=== PATIENT | female | born 1945 | race Caucasian/White ===

== ENCOUNTER 2016-11-06 16:36 | Inpatient (IN) | payer MEDICARE ==
[~2016-11-06] VITALS: Ht 160 cm; Wt 74.1 kg
[2016-11-06 16:51] VITALS: BP 135/63; PULSE 113; RESP 22; TEMP 97.5; O2SAT 98
[2016-11-06] MEDS ORDERED: HYDROmorphone HCL PF 1 MG/ML VIAL IV PUSH ONE ×4 (17:00→18:30)
[2016-11-06] MEDS ORDERED: KETOROLAC TROMETHAMINE 30 MG/ML (IVP) VIAL IV PUSH ONE (17:00)
--- NOTE | 2016-11-06 17:07 | PD ---
HPI Chief Complaint: Pain: Acute or Chronic Time Seen by Provider: 16:41 Travel History International Travel<30 days: No Contact w/Intl Traveler<30days: No Traveled to known affect area: No History of Present Illness HPI This 71-year-old female comes by ambulance with complaint of severe back pain. 2015. She had it for about a month and then if she didn't have any pain until last March. The pain started coming back again been getting progressively worse.. She developed symptoms while she was traveling. She has had an MRI done at the [facility] pain management [facility]. She has been going for epidurals with Dr. Fernandez. She has been having quite bad pain this past week. The pain she is having is in the right sciatic area and radiates down the back side of the leg to the foot. Today she went for her third epidural injection. She was having a lot of pain before the injection. She didn't feel too badly immediately afterwards but on going home she had recurrence of severe pain which is now more severe than it has ever been. She has significant pain when she puts her weight on her leg and she is not able to walk well. She has not been incontinent of stool. She says her bladder weeks all of time but there is been no recent change. She is started having back pain in June of 2015 and it lasted about a month at that time. It started again in March. She went for an MRI [facility]. She has been on gabapentin and Cymbalta for pain. The Cymbalta as cause some tremor and has been tapered. She received 10 mg of morphine while en route to the hospital and is still in marked distress with her pain PFSH Past Medical History Diabetes: Yes ?: Not Social History Tobacco Use: No Allergies-Medications (Allergen,Severity, Reaction): Coded Allergies: No Known Allergies (Verified , 11/06/16) Reported Meds & Prescriptions Reported Meds & Active Scripts Active Reported Robaxin (Methocarbamol) 500 Mg Tab 500 Mg PO TID Multi Vitamin Daily (Multiple Vitamin) 1 Tab Tab 1 Tab PO DAILY Eql Cinnamon (Cinnamon) 500 Mg Cap 500 Mg PO BID Flax Seed Oil (Flaxseed Oil) 1,000 Mg Capsule 1,300 Mg PO BID Calcium + D3 (Calcium Carbonate-Cholecalciferol) 600-200 Mg-Unit Tab 1 Tab PO BID Biotin 5,000 Mcg Tab.rapdis 1 Tab PO DAILY Niacin (Niacinamide) 500 Mg Tablet 1 Tab PO DAILY Lovastatin 40 Mg Tab 40 Mg PO DAILY Lisinopril 2.5 Mg Tab 2.5 Mg PO DAILY Zetia (Ezetimibe) 10 Mg Tab 10 Mg PO DAILY Aspirin 81 (Aspirin) 81 Mg Tabdr 81 Mg PO DAILY Glimepiride 4 Mg Tab 4 Mg PO BIDAC Cymbalta DR (Duloxetine HCl) 20 Mg Capdr 20 Mg PO DAILY Jardiance (Empagliflozin) 10 Mg Tab 10 Mg PO DAILY Gabapentin 600 Mg Tab 900 Mg PO HS Gabapentin 600 Mg Tab 600 Mg PO BID Novolin N Inj (Insulin Human NPH) 100 Unit/Ml Inj 8 Units SQ AC DINNER Novolin N Inj (Insulin Human NPH) 100 Unit/Ml Inj 12 Units SQ AC BREAKFAST Hydrocodone-Acetaminophen 10-325 mg Tab 1 Tab PO Q6H PRN Review of Systems General / Constitutional: No: Fever, Chills Eyes: No: Diploplia, Blurred Vision HENT: No: Headaches, Vertigo Cardiovascular: No: Chest Pain or Discomfort, Palpitations Respiratory: No: Cough, Shortness of Breath Gastrointestinal: No: Vomiting, Diarrhea Genitourinary: Positive: Incontinence (chronic), No: Urgency Musculoskeletal: Positive: Pain, No: Arthralgias Skin: No Rash, No Itching Neurologic: No: Change in Mentation, Sensory Disturbance Hematologic/Lymphatic: No: Easy Bruising Physical Exam Narrative GENERAL: Well-developed female. She is in marked distress due to the pain. She is lying on her left side and resists any attempts to move. SKIN: Focused skin assessment warm/dry. HEAD: Atraumatic. Normocephalic. EYES: Pupils equal and round. No scleral icterus. No injection or drainage. ENT: No nasal bleeding or discharge. Mucous membranes pink and moist. NECK: Trachea midline. No JVD. CARDIOVASCULAR: Regular rate and rhythm. No murmur appreciated. RESPIRATORY: No accessory muscle use. Clear to auscultation. Breath sounds equal bilaterally. GASTROINTESTINAL: Abdomen soft, non-tender, nondistended. Hepatic and splenic margins not palpable. MUSCULOSKELETAL: No obvious deformities. No clubbing. No cyanosis. No edema. NEUROLOGICAL: Awake and alert. No obvious cranial nerve deficits. There is diminished sensation in the posterior lateral portion of the right leg. Complains of a lot of pain with flexion and extension of the foot and it is hard to assess strength due to the pain she is having. She is able to move it about PSYCHIATRIC: Appropriate mood and affect; insight and judgment normal. Data Data Last Documented VS Vital Signs Date Time Temp Pulse Resp B/P Pulse Ox O2 Delivery O2 Flow Rate FiO2 11/06/16 19:29 Nasal Cannula 2 11/06/16 19:28 101 16 123/71 90 11/06/16 17:48 97.9 Orders Complete Blood Count With Diff (11/06/16 16:51) Comprehensive Metabolic Panel (11/06/16 16:51) Prothrombin Time / Inr (Pt) (11/06/16 16:51) Act Partial Throm Time (Ptt) (11/06/16 16:51) Ketorolac Inj (Toradol Inj) (11/06/16 17:00) Hydromorphone Pf Inj (Dilaudid Pf Inj) (11/06/16 17:00) Mri L Spine W/O Contrast (11/06/16 16:58) Urinalysis - C+S If Indicated (11/06/16 17:14) Hydromorphone Pf Inj (Dilaudid Pf Inj) (11/06/16 17:45) Lorazepam Inj (Ativan Inj) (11/06/16 18:15) Hydromorphone Pf Inj (Dilaudid Pf Inj) (11/06/16 18:15) Hydromorphone Pf Inj (Dilaudid Pf Inj) (11/06/16 18:30) Admit Order (Ed Use Only) (11/06/16 20:04) Labs Laboratory Tests Test 11/06/16 17:06 White Blood Count 8.9 TH/MM3 Red Blood Count 5.03 MIL/MM3 Hemoglobin 13.8 GM/DL Hematocrit 43.3 % Mean Corpuscular Volume 86.0 FL Mean Corpuscular Hemoglobin 27.4 PG Mean Corpuscular Hemoglobin 31.8 % Concent Red Cell Distribution Width 12.4 % Platelet Count 313 TH/MM3 Mean Platelet Volume 7.9 FL Neutrophils (%) (Auto) 87.0 % Lymphocytes (%) (Auto) 9.3 % Monocytes (%) (Auto) 1.6 % Eosinophils (%) (Auto) 0.0 % Basophils (%) (Auto) 2.1 % Neutrophils # (Auto) 7.8 TH/MM3 Lymphocytes # (Auto) 0.8 TH/MM3 Monocytes # (Auto) 0.1 TH/MM3 Eosinophils # (Auto) 0.0 TH/MM3 Basophils # (Auto) 0.2 TH/MM3 CBC Comment DIFF FINAL Differential Comment Prothrombin Time 10.1 SEC Prothromb Time International 0.9 RATIO Ratio Activated Partial 20.5 SEC Thromboplast Time Sodium Level 141 MEQ/L Potassium Level 4.7 MEQ/L Chloride Level 108 MEQ/L Carbon Dioxide Level 21.7 MEQ/L Anion Gap 11 MEQ/L Blood Urea Nitrogen 20 MG/DL Creatinine 0.77 MG/DL Estimat Glomerular Filtration 74 ML/MIN Rate Random Glucose 216 MG/DL Calcium Level 9.3 MG/DL Total Bilirubin 0.4 MG/DL Aspartate Amino Transf 29 U/L (AST/SGOT) Alanine Aminotransferase 39 U/L (ALT/SGPT) Alkaline Phosphatase 48 U/L Total Protein 7.4 GM/DL Albumin 3.8 GM/DL MDM Medical Decision Making Medical Screen Exam Complete: Yes Emergency Medical Condition: Yes Medical Record Reviewed: Yes Differential Diagnosis Differential includes HNP, spinal hematoma Narrative Course It has been very difficult to control the patient's pain. She was given 10 mg of intravenous morphine by paramedics. I have given an additional 2 mg of Dilaudid as well as Toradol. The Ativan was also given to facilitate the MRI. MRI shows degenerative changes with disc protrusion. There is diffuse disc bulge at L5-S1 with right central protrusion demonstrating mass effect on the right S1 and S2 nerve roots. The protrusion measures 13 x 9 mm in transverse and AP dimension. Case discussed with Dr. Hutson who recommends pain management. Patient will be given a short course of steroids Diagnosis Primary Impression: Herniated lumbar intervertebral disc Additional Impression: Intractable pain Sidney Haro MD Nov 06, 2016 17:07
[2016-11-06 17:20] LABS: AUTOMATED NEUTROPHIL # 7.8 TH/MM3 (1.8-7.7); BASOPHIL # 0.2 TH/MM3 (0-0.2); BASOPHIL % 2.1 % (0.0-2.0); HEMATOCRIT 43.3 % (35.0-46.0); LYMPH % 9.3 % (9.0-44.0); LYMPHOCYTE # 0.8 TH/MM3 (1.0-4.8); MEAN CORPUSCULAR HEMOGLOBIN 27.4 PG (27.0-34.0); MEAN CORPUSCULAR HGB CONC 31.8 % (32.0-36.0); MONO % 1.6 % (0.0-8.0); PLATELET COUNT 313 TH/MM3 (150-450); RED BLOOD COUNT 5.03 MIL/MM3 (4.00-5.30); RED CELL DISTRIBUTION WIDTH 12.4 % (11.6-17.2); WHITE BLOOD COUNT 8.9 TH/MM3 (4.0-11.0)
[2016-11-06 17:21] LABS: HEMO FLAGS DIFF FINAL
[2016-11-06 17:29] LABS: CHLORIDE 108 MEQ/L (98-107); POTASSIUM 4.7 MEQ/L (3.5-5.1); SODIUM (NA) 141 MEQ/L (136-145)
[2016-11-06 17:33] LABS: ANION GAP 11 MEQ/L (5-15); BICARBONATE 21.7 MEQ/L (21.0-32.0); BLOOD UREA NITROGEN 20 MG/DL (7-18)
[2016-11-06 17:36] LABS: ALT (GPT) 39 U/L (10-53); AST (GOT) 29 U/L (15-37); GLOMERULAR FILTRATION RATE 74 ML/MIN (>89)
[2016-11-06] MEDS ORDERED: GABA600T PO ×2 (17:36)
[2016-11-06] MEDS ORDERED: ROBA500T PO (17:36)
[2016-11-06] MEDS ORDERED: ZETI10TA5 PO (17:36)
[2016-11-06] MEDS ORDERED: BIOT50006 PO (17:36)
[2016-11-06] MEDS ORDERED: EMPA1TAB PO (17:36)
[2016-11-06] MEDS ORDERED: LOVA40TA PO (17:36)
[2016-11-06] MEDS ORDERED: DULO20 PO (17:36)
[2016-11-06] MEDS ORDERED: GLIM4TAB PO (17:36)
[2016-11-06] MEDS ORDERED: ASPI-110 PO (17:36)
[2016-11-06] MEDS ORDERED: TH F1000 PO (17:36)
[2016-11-06] MEDS ORDERED: NOVONP2 SQ ×2 (17:36)
[2016-11-06] MEDS ORDERED: CALC600T10 PO (17:36)
[2016-11-06] MEDS ORDERED: CINN500C13 PO (17:36)
[2016-11-06] MEDS ORDERED: HYDR-3583 PO (17:36)
[2016-11-06] MEDS ORDERED: LISI2.5T3 PO (17:36)
[2016-11-06] MEDS ORDERED: MULT1TAB46 PO (17:36)
[2016-11-06] MEDS ORDERED: NIAC500T67 PO (17:36)
[2016-11-06 17:38] LABS: TOTAL BILIRUBIN ADULT 0.4 MG/DL (0.2-1.0)
[2016-11-06 17:39] LABS: ALKALINE PHOSPHATASE 48 U/L (45-117)
[2016-11-06 17:40] LABS: APTT (PATIENT) 20.5 SEC (24.3-30.1); INTERNATIONAL NORMALIZED RATIO 0.9 RATIO; PROTHROMBIN TIME - PATIENT 10.1 SEC (9.8-11.6)
[2016-11-06 17:48] VITALS: BP 139/67; PULSE 94; RESP 20; TEMP 97.9; O2SAT 97
[2016-11-06] MEDS ORDERED: LORazepam 2 MG/ML VIAL IV PUSH ONE (18:15)
--- NOTE | 2016-11-06 19:24 | RADRPT ---
EXAM DATE/TIME: 11/06/2016 18:59 [facility] COMPARISON: No previous studies available for comparison. INDICATIONS : Pain. Post epidural. MEDICAL HISTORY : Diabetes mellitus type 2. SURGICAL HISTORY : None. ENCOUNTER: Initial ACUITY: 1 day PAIN SCORE: 6/10 LOCATION: Lower back. TECHNIQUE: Multiplanar multisequence MRI of the lumbar spine was performed without contrast. FINDINGS: The most caudal appearing lumbar vertebra is numbered as L5. Mild diffuse disc desiccation and disc s pace narrowing. Multilevel osteophyte formation. No compression deformity or bone marrow edema. T12-L1: The thecal sac has a normal diameter. No evidence of disc bulge or protrusion. The neural foramina are patent bilaterally. L1-L2: The thecal sac has a normal diameter. No evidence of disc bulge or protrusion. The neural foramina are patent bilaterally. L2-L3: Minimal disc bulge and facet hypertrophy with abutment of the right L2 exiting nerve. No canal or for aminal narrowing L3-L4: Minimal diffuse disc bulge abuts the right L3 exiting nerve but does not displace it. Mild facet and ligamentum flavum hypertrophy. No canal or foraminal narrowing. L4-L5: Mild diffuse disc bulge and mild facet and ligamentum flavum hypertrophy but no canal or foraminal na rrowing. L5-S1: There is a diffuse disc bulge with a superimposed right central protrusion demonstrating mass effect on the right S1 and S2 nerve roots displaced posteriorly. The protrusion measures 13 x 9 mm in transv erse and AP dimension. CONCLUSION: Degenerative changes are noted with a disc protrusion at L5-S1 as described above. Brandon Maurice MD on November 06, 2016 at 19:19 Board Certified Radiologist. This report was verified electronically.
[2016-11-06 19:28] VITALS: BP 123/71; PULSE 101; RESP 16; O2SAT 90
[2016-11-06 20:45] VITALS: O2SAT 99
[2016-11-06] MEDS ORDERED: ONDANSETRON HCL 4 MG/2 ML VIAL IVP PRN (21:00)
[2016-11-06] MEDS ORDERED: MAGNESIUM HYDROXIDE SUSP 30 ML CUP PO PRN (21:00)
[2016-11-06] MEDS ORDERED: SENNOSIDES 8.6 MG TAB PO PRN (21:00)
[2016-11-06] MEDS ORDERED: NALOXONE HCL 0.4 MG/ML AMP IV PRN (21:00)
[2016-11-06] MEDS ORDERED: BISACODYL 10 MG SUPP RECTAL PRN (21:00)
[2016-11-06] MEDS: GABAPENTIN 300 MG CAP PO SCH ×2 (21:00→23:19)
[2016-11-06] MEDS ORDERED: LACTULOSE SYRUP 20 GM/30 ML CUP PO PRN (21:00)
[2016-11-06 21:30] VITALS: BP 128/70; PULSE 101; RESP 18; TEMP 96.3; O2SAT 96
[2016-11-06] MEDS: SODIUM CHLORIDE 0.9% FLUSH 10 ML FLUSH IV FLUSH SCH (23:20)
[2016-11-06] MEDS: DOCUSATE SODIUM 50 MG/SENNA 8.6 MG TAB PO SCH (23:20)
[2016-11-06] MEDS: HYDROmorphone HCL PF 1 MG/ML VIAL IV PRN (23:22)
[2016-11-06] MEDS: INSULIN ASPART SUPPLEMENTAL SCALE SQ SCH (23:27)
[2016-11-06] MEDS ORDERED: TEMAZEPAM 15 MG CAP PO PRN (23:45)
--- NOTE | 2016-11-06 23:54 | HHI.HP ---
HPI Service [facility] Hospitalists Primary Care Physician Yonis Poon MD, PhD Admission Diagnosis DISC PROTRUSION, RADICULOPATHY, INTRACTABLE PAIN Chief Complaint: intractable lumbar back pain all day Travel History International Travel<30 Days: No Contact w/Intl Traveler <30 Da: No Traveled to Known Affected Are: No History of Present Illness This 71-year-old female comes by ambulance with complaint of severe back pain. 2015. She had it for about a month and then if she didn't have any pain until last March. The pain started coming back again been getting progressively worse.. She developed symptoms while she was traveling. She has had an MRI done at the [facility] pain management [facility]. She has been going for epidurals with Dr. Fernandez. She has been having quite bad pain this past week. The pain she is having is in the right sciatic area and radiates down the back side of the leg to the foot. Today she went for her third epidural injection. She was having a lot of pain before the injection. She didn't feel too badly immediately afterwards but on going home she had recurrence of severe pain which is now more severe than it has ever been. She has significant pain when she puts her weight on her leg and she is not able to walk well. She has not been incontinent of stool. She says her bladder weeks all of time but there is been no recent change. She is started having back pain in June of 2015 and it lasted about a month at that time. It started again in March. She has been on gabapentin and Cymbalta for pain. The Cymbalta as cause some tremor and has been tapered. She received 10 mg of morphine while en route to the hospital and is still in marked distress with her pain,Will admit for further evaluation. Review of Systems Musculoskeletal: COMPLAINS OF: Joint pain, Back pain Past Family Social History Past Medical History diabetes ,hypertension ,hyperlipidemia Past Surgical History appendix Reported Medications Robaxin (Methocarbamol) 500 Mg Tab 500 Mg PO TID Multi Vitamin Daily (Multiple Vitamin) 1 Tab Tab 1 Tab PO DAILY Eql Cinnamon (Cinnamon) 500 Mg Cap 500 Mg PO BID Flax Seed Oil (Flaxseed Oil) 1,000 Mg Capsule 1,300 Mg PO BID Calcium + D3 (Calcium Carbonate-Cholecalciferol) 600-200 Mg-Unit Tab 1 Tab PO BID Biotin 5,000 Mcg Tab.rapdis 1 Tab PO DAILY Niacin (Niacinamide) 500 Mg Tablet 1 Tab PO DAILY Lovastatin 40 Mg Tab 40 Mg PO DAILY Lisinopril 2.5 Mg Tab 2.5 Mg PO DAILY Zetia (Ezetimibe) 10 Mg Tab 10 Mg PO DAILY Aspirin 81 (Aspirin) 81 Mg Tabdr 81 Mg PO DAILY Glimepiride 4 Mg Tab 4 Mg PO BIDAC Cymbalta DR (Duloxetine HCl) 20 Mg Capdr 20 Mg PO DAILY Jardiance (Empagliflozin) 10 Mg Tab 10 Mg PO DAILY Gabapentin 600 Mg Tab 900 Mg PO HS Gabapentin 600 Mg Tab 600 Mg PO BID Novolin N Inj (Insulin Human NPH) 100 Unit/Ml Inj 8 Units SQ AC DINNER Novolin N Inj (Insulin Human NPH) 100 Unit/Ml Inj 12 Units SQ AC BREAKFAST Hydrocodone-Acetaminophen 10-325 mg Tab 1 Tab PO Q6H PRN Allergies: Coded Allergies: No Known Allergies (Verified , 11/06/16) Social History NS,ND Physical Exam Vital Signs Vital Signs Date Time Temp Pulse Resp B/P Pulse Ox O2 Delivery O2 Flow Rate FiO2 11/06/16 21:30 96.3 101 18 128/70 96 11/06/16 20:45 99 Nasal Cannula 2 11/06/16 19:29 Nasal Cannula 2 11/06/16 19:28 101 16 123/71 90 Room Air 11/06/16 17:48 97.9 94 20 139/67 97 Room Air 11/06/16 16:51 97.5 113 22 135/63 98 Physical Exam GENERAL: This is a well-nourished, well-developed patient, in no apparent distress. SKIN: No rashes, ecchymoses or lesions. Cool and dry. HEAD: Atraumatic. Normocephalic. No temporal or scalp tenderness. EYES: Pupils equal round and reactive. Extraocular motions intact. No scleral icterus. No injection or drainage. ENT: Nose without bleeding, purulent drainage or septal hematoma. Throat without erythema, tonsillar hypertrophy or exudate. Uvula midline. Airway patent. NECK: Trachea midline. No JVD or lymphadenopathy. Supple, nontender, no meningeal signs. CARDIOVASCULAR: Regular rate and rhythm without murmurs, gallops, or rubs. RESPIRATORY: Clear to auscultation. Breath sounds equal bilaterally. No wheezes , rales, or rhonchi. GASTROINTESTINAL: Abdomen soft, non-tender, nondistended. No hepato-splenomegaly , or palpable masses. No guarding. MUSCULOSKELETAL: Extremities without clubbing, cyanosis, or edema. No joint tenderness, effusion, or edema noted. No calf tenderness. Negative Homans sign bilaterally. NEUROLOGICAL: Awake and alert. Cranial nerves II through XII intact. Motor and sensory grossly within normal limits. Five out of 5 muscle strength in all muscle groups. Normal speech. Patient unable to lie flat on side due to pain Laboratory Laboratory Tests Test 11/06/16 17:06 White Blood Count 8.9 Red Blood Count 5.03 Hemoglobin 13.8 Hematocrit 43.3 Mean Corpuscular Volume 86.0 Mean Corpuscular Hemoglobin 27.4 Mean Corpuscular Hemoglobin 31.8 Concent Red Cell Distribution Width 12.4 Platelet Count 313 Mean Platelet Volume 7.9 Neutrophils (%) (Auto) 87.0 Lymphocytes (%) (Auto) 9.3 Monocytes (%) (Auto) 1.6 Eosinophils (%) (Auto) 0.0 Basophils (%) (Auto) 2.1 Neutrophils # (Auto) 7.8 Lymphocytes # (Auto) 0.8 Monocytes # (Auto) 0.1 Eosinophils # (Auto) 0.0 Basophils # (Auto) 0.2 CBC Comment DIFF FINAL Differential Comment Prothrombin Time 10.1 Prothromb Time International 0.9 Ratio Activated Partial 20.5 Thromboplast Time Sodium Level 141 Potassium Level 4.7 Chloride Level 108 Carbon Dioxide Level 21.7 Anion Gap 11 Blood Urea Nitrogen 20 Creatinine 0.77 Estimat Glomerular Filtration 74 Rate Random Glucose 216 Calcium Level 9.3 Total Bilirubin 0.4 Aspartate Amino Transf 29 (AST/SGOT) Alanine Aminotransferase 39 (ALT/SGPT) Alkaline Phosphatase 48 Total Protein 7.4 Albumin 3.8 Result Diagram: 11/06/16 1706 11/06/16 1706 Imaging Last 24 hours Impressions Lumbar Spine MRI 11/06/16 1658 Signed Impressions: Service Date/Time: October 18:59 - CONCLUSION: Degenerative changes are noted with a disc protrusion at L5-S1 as described above. Brandon Maurice MD Course in er received multiple iv pain meds Assessment and Plan Problem List: (1) Herniated lumbar intervertebral disc Status: Acute Plan: patient with herniated disc er did discuss with neurosurgery and felt nothing surgical will ask interventional radiology for evaluation (2) Intractable pain Status: Acute Plan: continue current pain meds add sleeping pill to try and help patient get some rest Assessment and Plan further plan as case progresses Code Status full Discussed Condition With patient Carrillo Iraheta MD Nov 06, 2016 23:53
[2016-11-07] VITALS: BP_SYST 135; BP_DIAS 165; BP_DIAS 65; PULSE 100; RESP 18; TEMP 95.9; O2SAT 96
[2016-11-07] MEDS: SODIUM CHLORIDE 0.9% FLUSH 10 ML FLUSH IV FLUSH PRN ×2 (02:13→22:22)
[2016-11-07] MEDS: HYDROmorphone HCL PF 1 MG/ML VIAL IV PRN ×5 (02:13→22:22)
[2016-11-07] MEDS: GLIMEPIRIDE 4 MG TAB PO SCH ×2 (06:25→16:37)
[2016-11-07] MEDS: INSULIN HUMAN NPH 1,000 UNITS/10 ML VIAL SQ SCH ×2 (06:27→16:41)
[2016-11-07] MEDS: INSULIN ASPART SUPPLEMENTAL SCALE SQ SCH ×4 (06:28→20:52)
[2016-11-07 08:00] VITALS: BP 166/80; PULSE 114; RESP 18; TEMP 98.5; O2SAT 95
[2016-11-07] MEDS: LISINOPRIL 5 MG TAB PO SCH (08:25)
[2016-11-07] MEDS: METHOCARBAMOL 500 MG TAB PO SCH ×3 (08:26→17:18)
[2016-11-07] MEDS: DOCUSATE SODIUM 50 MG/SENNA 8.6 MG TAB PO SCH ×2 (08:26→20:45)
[2016-11-07] MEDS: MULTIVITAMIN TAB PO SCH (08:26)
[2016-11-07] MEDS: GABAPENTIN 300 MG CAP PO SCH ×3 (08:27→20:44)
[2016-11-07] MEDS: EZETIMIBE 10 MG TAB PO SCH (08:27)
[2016-11-07] MEDS: SODIUM CHLORIDE 0.9% FLUSH 10 ML FLUSH IV FLUSH SCH ×2 (08:31→20:44)
[2016-11-07] MEDS ORDERED: ASPIRIN EC 81 MG TABEC PO SCH (09:00)
[2016-11-07] MEDS ORDERED: PRAVASTATIN SOD 40 MG TAB PO SCH (09:00)
[2016-11-07] MEDS ORDERED: JARDIANCE 10 MG PO SCH (09:00)
[2016-11-07] MEDS: DULoxetine HCl DR 20 MG CAP PO SCH (09:38)
[2016-11-07 10:14] LABS: BLOOD, URINE TRACE (NEG); NITRITE,URINE NEG (NEG); PH, URINE 5.5 (5.0-8.5)
[2016-11-07 10:30] LABS: GLUCOSE,URINE 1000 OR GREATER mg/dL (NEG); KETONE, URINE 80 OR GREATER mg/dL (NEG)
[2016-11-07 10:40] LABS: METHOD OF COLLECTION VOIDED; URINE COLOR STRAW (YELLW/STRAW)
[2016-11-07 10:41] LABS: COMMENT (UR) CULT NOT INDICATED; CULTURE IF INDICATED CULT NOT INDICATED; HYALINE CAST, URINE 0-3 /lpf (RARE); SQUAMOUS EPITHELIAL CELL URINE 0-2 /hpf (0-5); WBC, URINE 0-2 /hpf (0-5)
--- NOTE | 2016-11-07 11:53 | HHI.PR ---
Subjective Remarks Patient remains in severe back pain and i discussed with interventional radiology and as patient had epidural yesterday there is nothing they can do at this time ,medication has not been helping ,patient crying in pain will get neurosurgery to see for any advice try 1mg dilaudid from .5 and try solumedrol times one Objective Vitals GENERAL: SKIN: Warm and dry. HEAD: Atraumatic. Normocephalic. EYES: Pupils equal and round. No scleral icterus. No injection or drainage. ENT: No nasal bleeding or discharge. Mucous membranes pink and moist. NECK: Trachea midline. No JVD. CARDIOVASCULAR: Regular rate and rhythm. RESPIRATORY: No accessory muscle use. Clear to auscultation. Breath sounds equal bilaterally. GASTROINTESTINAL: Abdomen soft, non-tender, nondistended. Hepatic and splenic margins not palpable. MUSCULOSKELETAL: Extremities without clubbing, cyanosis, or edema. No obvious deformities. NEUROLOGICAL: Awake and alert. No obvious cranial nerve deficits. Motor grossly within normal limits. Five out of 5 muscle strength in the arms and legs. Normal speech. PSYCHIATRIC: Appropriate mood and affect; insight and judgment normal. EXT-severe back pain unable to move without pain Vital Signs Date Time Temp Pulse Resp B/P Pulse Ox O2 Delivery O2 Flow Rate FiO2 11/07/16 08:00 98.5 114 18 166/80 95 11/07/16 00:00 95.9 100 18 135/65 96 11/07/16 00:00 95.9 100 18 135/165 96 11/06/16 21:30 96.3 101 18 128/70 96 11/06/16 20:45 99 Nasal Cannula 2 11/06/16 19:29 Nasal Cannula 2 11/06/16 19:28 101 16 123/71 90 Room Air 11/06/16 17:48 97.9 94 20 139/67 97 Room Air 11/06/16 16:51 97.5 113 22 135/63 98 11/06/16 11/06/16 11/07/16 15:00 23:00 07:00 Output Total 1 ml Balance -1 ml Output Urine Total 1 ml Stool Total 0 ml # Voids 0 # Bowel Movements 0 Result Diagram: 11/06/16 1706 11/06/16 1706 Imaging Last 24 hours Impressions Lumbar Spine MRI 11/06/16 1658 Signed Impressions: Service Date/Time: October 18:59 - CONCLUSION: Degenerative changes are noted with a disc protrusion at L5-S1 as described above. Brandon Mauriec MD A/P Problem List: (1) Herniated lumbar intervertebral disc Status: Acute Plan: patient with herniated disc er did discuss with neurosurgery and felt nothing surgical will ask for advice trying all pain modalities and asked for PT ,interventional radiology unable to do anything as just had epidural yesterday (2) Intractable pain Status: Acute Plan: continue current pain meds add sleeping pill to try and help patient get some rest Assessment and Plan as above Carrillo Iraheta MD Nov 07, 2016 11:53
[2016-11-07 12:00] VITALS: BP 123/54; PULSE 100; RESP 18; TEMP 97.9; O2SAT 100
[2016-11-07] MEDS ORDERED: methylPREDNISolone SOD SUCC 125 MG/2 ML VIAL IV PUSH ONE (12:00)
[2016-11-07] MEDS ORDERED: HYDROmorphone HCL PF 1 MG/ML VIAL IV PUSH ONE (12:00)
[2016-11-07] MEDS: JARDIANCE 10 MG PO SCH (12:20)
[2016-11-07 16:00] VITALS: BP 126/82; PULSE 79; RESP 18; TEMP 97.9; O2SAT 95
[2016-11-07] MEDS ORDERED: LORazepam 0.5 MG TAB PO PRN (17:30)
[2016-11-07 20:00] VITALS: BP 134/79; PULSE 90; RESP 20; TEMP 97.6; O2SAT 95
[2016-11-07] MEDS: ACETAMINOPHEN/HYDROcodone 325 MG/10 MG TAB PO PRN (20:44)
--- NOTE | 2016-11-07 22:47 | PD.CONS ---
History of Present Illness Service Neurosurgery Consult Requested By Dr. Iraheta Reason for Consult Lumbar disc herniation with radiculopathy Primary Care Physician Yonis Poon MD, PhD Diagnoses: History of Present Illness Ms. Rouse is a 71-year-old lady who states that in June 2015, she was on a trip in the [facility], and developed acute onset of right low back pain with radiation to the right lower extremity. She was seen in an emergency room and given pain injections and release. The pain persisted and in July 2015 she received a Dilaudid injection in an emergency room, and the pain significantly diminished. She did relatively well until March 2016 when the right lower extremity pain gradually returned. In April 2016 she underwent an MRI which revealed an L5-S1 disc displacement. She was referred for interventional pain management evaluation and has undergone 3 epidural steroid injections since April 2016. She indicates that the injections have moderated the pain, but have not totally relieved the pain. She states that her pain level has continued to be mostly a 6/10 severity with occasional more severe flareups over the past few months. She has been placed on gabapentin and Cymbalta through the interventional pain clinic. She indicates that the Cymbalta has caused some shaking, and is being weaned off. She is not taking other pain medications on a long-term basis. This past Thursday, she developed a significant increase in right lower extremity pain symptoms, which has been mostly 10/10 over the past few days. She has been receiving intravenous pain medications since admission to the hospital yesterday, which have improved the pain to a moderate degree, but she still remains more painful than her usual baseline. She complains of intermittent numbness in the posterior right lower extremity including the lateral right foot. No complaints of bowel or bladder dysfunction. She has no pain weakness or numbness in the lower extremities. No definite pain weakness or numbness in the upper extremities except for some loss of sensation over her fingertips which she attributes to fingersticks for diabetes. Review of Systems Constitutional: DENIES: Fever Eyes: DENIES: Blurred vision Respiratory: DENIES: Cough, Shortness of breath Cardiovascular: DENIES: Chest pain, Palpitations Gastrointestinal: DENIES: Nausea, Vomiting Musculoskeletal: COMPLAINS OF: Back pain, DENIES: Neck pain Hematologic/lymphatic: DENIES: Bruising Neurologic: COMPLAINS OF: Abnormal gait, DENIES: Poor Balance Psychiatric: DENIES: Depression Past Family Social History Allergies: Coded Allergies: No Known Allergies (Verified , 11/06/16) Past Medical History Diabetes Hypertension Dyslipidemia Reported Medications Reported Meds & Active Scripts Active Reported Robaxin (Methocarbamol) 500 Mg Tab 500 Mg PO TID Multi Vitamin Daily (Multiple Vitamin) 1 Tab Tab 1 Tab PO DAILY Eql Cinnamon (Cinnamon) 500 Mg Cap 500 Mg PO BID Flax Seed Oil (Flaxseed Oil) 1,000 Mg Capsule 1,300 Mg PO BID Calcium + D3 (Calcium Carbonate-Cholecalciferol) 600-200 Mg-Unit Tab 1 Tab PO BID Biotin 5,000 Mcg Tab.rapdis 1 Tab PO DAILY Niacin (Niacinamide) 500 Mg Tablet 1 Tab PO DAILY Lovastatin 40 Mg Tab 40 Mg PO DAILY Lisinopril 2.5 Mg Tab 2.5 Mg PO DAILY Zetia (Ezetimibe) 10 Mg Tab 10 Mg PO DAILY Aspirin 81 (Aspirin) 81 Mg Tabdr 81 Mg PO DAILY Glimepiride 4 Mg Tab 4 Mg PO BIDAC Cymbalta DR (Duloxetine HCl) 20 Mg Capdr 20 Mg PO DAILY Jardiance (Empagliflozin) 10 Mg Tab 10 Mg PO DAILY Gabapentin 600 Mg Tab 900 Mg PO HS Gabapentin 600 Mg Tab 600 Mg PO BID Novolin N Inj (Insulin Human NPH) 100 Unit/Ml Inj 8 Units SQ AC DINNER Novolin N Inj (Insulin Human NPH) 100 Unit/Ml Inj 12 Units SQ AC BREAKFAST Hydrocodone-Acetaminophen 10-325 mg Tab 1 Tab PO Q6H PRN Family History Gives a history of breast cancer and cardiac disease in her mother. Social History Does not smoke cigarettes or drink alcohol. Physical Exam Vital Signs Vital Signs Date Time Temp Pulse Resp B/P Pulse Ox O2 Delivery O2 Flow Rate FiO2 11/07/16 20:00 97.6 90 20 134/79 95 11/07/16 16:00 97.9 79 18 126/82 95 11/07/16 12:00 97.9 100 18 123/54 100 11/07/16 08:00 98.5 114 18 166/80 95 11/07/16 00:00 95.9 100 18 135/65 96 11/07/16 00:00 95.9 100 18 135/165 96 Physical Exam GENERAL: This is a well-nourished, well-developed patient, appears quite painful during the examination SKIN: No rashes, ecchymoses or lesions. Cool and dry. HEAD: Normocephalic. EYES: Sclerae are clear and nonicteric ENT: No facial edema or ecchymosis NECK:Supple, nontender, no meningeal signs. CARDIOVASCULAR: Regular rate and rhythm without murmurs, gallops, or rubs. RESPIRATORY: Clear to auscultation. Breath sounds equal bilaterally. No wheezes , rales, or rhonchi. GASTROINTESTINAL: Abdomen soft, non-tender, nondistended. No hepato-splenomegaly , or palpable masses. No guarding. MUSCULOSKELETAL: Extremities without clubbing, cyanosis, or edema. No joint tenderness, effusion, or edema noted. No calf tenderness. She complains of mild groin pain with internal/external rotation of the right and left lower extremity. No tenderness over the right or left lateral hip. Posterior tibial and dorsalis pedis pulses 2+ bilateral NEUROLOGICAL: Awake and alert. Speech clear and appropriate Reasonable judgment and insight Appears a little anxious. No obvious depression Follow simple commands well Extraocular movements intact Patient motor movements symmetric Sensation intact to light touch in the upper and lower extremities except mild decrease fingertips both hands and mild decrease posterior right calf and lateral foot to light touch. Strength is within normal limits in all major flexion and extension groups throughout the upper and lower extremities as well as hand intrinsic musculature and inversion/eversion of the right and left foot. She does have some guarding with distal right lower extremity motor testing with complaint of leg pain with this movement. Eitan's response absent bilateral No ankle clonus Laboratory Laboratory Tests Test 11/07/16 10:00 Urine Collection Type VOIDED Urine Color STRAW Urine Turbidity CLEAR Urine pH 5.5 Urine Specific [place] 1.035 Urine Protein NEG Urine Glucose (UA) 1000 OR GREATER Urine Ketones 80 OR GREATER Urine Occult Blood TRACE Urine Nitrite NEG Urine Bilirubin NEG Urine Leukocyte Esterase NEG Urine WBC 0-2 Urine Squamous Epithelial 0-2 Cells Urine Hyaline Casts 0-3 Microscopic Urinalysis Comment CULT NOT INDICATED Result Diagram: 11/06/16 1706 11/06/16 1706 Imaging 11/06/2016 MRI lumbar spine images reviewed with the patient and her daughter. This study reveals a at least moderate central to right L5-S1 herniated nucleus pulposis which appears to be contained by the annulus and ligament. This significantly displaces the right S1 nerve root. The study is compared to images from previous MRI from April 2016 [facility] which revealed a much more mild primarily central L5-S1 disc displacement without significant nerve root impingement. Lumbar Spine MRI 11/06/16 7448 Signed Impressions: Service Date/Time: October 18:59 - CONCLUSION: Degenerative changes are noted with a disc protrusion at L5-S1 as described above. Brandon Maurice MD Assessment and Plan Assessment and Plan Impression: 1. Right L5-S1 herniated nucleus pulposus. This is likely an acute exacerbation of a previous milder central L5-S1 disc displacement as seen on previous MRI from April 2016. 2. Chronic right S1 radiculopathy with recent acute exacerbation. Persistent severe pain despite recent epidural steroid injection this past week and intravenous pain medications. 3. Diabetes 4. Dyslipidemia 5. Hypertension Recommendations: Findings were discussed at length with the patient and her daughter. The MRI images were reviewed with him. Options of further conservative treatment, further interventional pain management, and surgical intervention have all been fully discussed along with pros and cons and prognosis of each. The patient states that she has been very uncomfortable for several months, and continues to be in rather severe pain for the past week. She would like to proceed with surgical intervention. The procedure of right L5-S1 laminectomy and discectomy has been discussed. Risk and possible complications have been discussed including the risk of anesthesia, organ failure, stroke, , bleeding, infection, nerve damage, pain, weakness, numbness, paralysis, loss of bowel, bladder or sexual function, spinal fluid leak. All questions have been answered. She appears to understand the above and wishes to proceed with surgery in the near future. Since she has been on aspirin and statin medications which may increase the risk of postoperative bleeding, the surgery will be scheduled for 11/09/16 at the [facility]. She will require a transfer to the [facility] prior to surgery. Tommy Sosa MD Nov 07, 2016 22:47
[2016-11-08] VITALS: BP 112/71; PULSE 101; RESP 20; TEMP 99.2; O2SAT 95
[2016-11-08] MEDS: INSULIN HUMAN NPH 1,000 UNITS/10 ML VIAL SQ SCH ×2 (06:36→16:00)
[2016-11-08] MEDS: INSULIN ASPART SUPPLEMENTAL SCALE SQ SCH ×4 (06:37→21:24)
[2016-11-08] MEDS: GLIMEPIRIDE 4 MG TAB PO SCH ×2 (06:38→15:37)
[2016-11-08] MEDS: HYDROmorphone HCL PF 1 MG/ML VIAL IV PRN ×3 (07:56→22:47)
[2016-11-08 08:00] VITALS: BP 135/74; PULSE 96; RESP 18; TEMP 99; O2SAT 95
[2016-11-08] MEDS: EZETIMIBE 10 MG TAB PO SCH (08:01)
[2016-11-08] MEDS: METHOCARBAMOL 500 MG TAB PO SCH ×3 (08:01→16:19)
[2016-11-08] MEDS: DULoxetine HCl DR 20 MG CAP PO SCH (08:01)
[2016-11-08] MEDS: MULTIVITAMIN TAB PO SCH (08:01)
[2016-11-08] MEDS: DOCUSATE SODIUM 50 MG/SENNA 8.6 MG TAB PO SCH ×2 (08:01→21:15)
[2016-11-08] MEDS: GABAPENTIN 300 MG CAP PO SCH ×3 (08:01→21:16)
[2016-11-08] MEDS: JARDIANCE 10 MG PO SCH (08:02)
[2016-11-08] MEDS: SODIUM CHLORIDE 0.9% FLUSH 10 ML FLUSH IV FLUSH SCH ×2 (08:04→21:16)
[2016-11-08] MEDS: LISINOPRIL 5 MG TAB PO SCH (09:00)
[2016-11-08 12:00] VITALS: BP 123/72; PULSE 84; RESP 18; TEMP 98.2; O2SAT 96
--- NOTE | 2016-11-08 14:35 | RADRPT ---
EXAM DATE/TIME: 11/08/2016 14:19 [facility] COMPARISON: No previous studies available for comparison. INDICATIONS : Back pain, pre op for back surgery, evaluate for pneumonia, pneumothorax or other disease MEDICAL HISTORY : None. SURGICAL HISTORY : None. ENCOUNTER: Subsequent ACUITY: 1 day PAIN SCORE: 0/10 LOCATION: Bilateral chest FINDINGS: The lungs are clear without infiltrate, nodule, or mass. There is no appreciable pleural effusion fo r technique. Heart and mediastinum are unremarkable. CONCLUSION: No acute cardiopulmonary disease. Suzy Galo MD on November 08, 2016 at 14:33 Board Certified Radiologist. This report was verified electronically.
--- NOTE | 2016-11-08 14:43 | HHI.PR ---
Subjective Remarks Pain a little improved but still unable to stand on her leg Objective Vitals Vital Signs Date Time Temp Pulse Resp B/P Pulse Ox O2 Delivery O2 Flow Rate FiO2 11/08/16 12:00 98.2 84 18 123/72 96 11/08/16 08:26 20 11/08/16 08:00 99.0 96 18 135/74 95 11/08/16 00:00 99.2 101 20 112/71 95 11/07/16 20:00 97.6 90 20 134/79 95 11/07/16 16:00 97.9 79 18 126/82 95 11/07/16 11/07/16 11/08/16 14:59 22:59 06:59 Intake Total 60 ml 60 ml Balance 60 ml 60 ml Intake Oral 60 ml 60 ml # Voids 8 1 # Bowel Movements 0 0 Result Diagram: 11/06/16 1706 11/06/16 1706 Imaging Last 24 hours Impressions Lumbar Spine MRI 11/06/16 1658 Signed Impressions: Service Date/Time: October 18:59 - CONCLUSION: Degenerative changes are noted with a disc protrusion at L5-S1 as described above. Brandon Maurice MD Objective Remarks Lying flat in bed NAD CTA RRR +BS nontender scds on bilaterally A/P Problem List: (1) Herniated lumbar intervertebral disc Status: Acute Plan: patient with herniated disc , pain medications adjusted last night but still unable to weight bear seen by Dr Sosa last night and surgical option discussed with patient and dauhgter they have opted for surgery and she is scheduled for tommorrow am at [facility] aspirin stopped yesterday (2) Intractable pain Status: Acute Plan: continue current pain meds add sleeping pill to try and help patient get some rest (3) Diabetes mellitus, type 2 Status: Chronic Plan: on insulin and oral agents on hold after midnight, did get some prednisone earlier in hospital stay and sugars have been higher will cover with sliding scale Assessment and Plan as above Diann Dumont MD Nov 08, 2016 14:43
[2016-11-08 16:00] VITALS: BP 121/71; PULSE 93; RESP 18; TEMP 97.1; O2SAT 96
--- NOTE | 2016-11-08 18:29 | HHI.NSPN ---
History Chief Complaint: right low back and gluteal pain Interval History 71-year-old female with chronic right low back gluteal and lower extremity pain since approximately January 2016 with treatment with interventional pain management since April 2016 as well as gabapentin and Cymbalta. This past Thursday severe flareup of right posterior lower extremity pain/01/27 severity. She had an epidural steroid injection this past without improvement. Exam Results Vital Signs Date Time Temp Pulse Resp B/P Pulse Ox O2 Delivery O2 Flow Rate FiO2 11/08/16 16:51 20 11/08/16 16:00 97.1 93 121/71 96 11/06/16 20:45 Nasal Cannula 2 Intake and Output 11/07/16 11/07/16 11/08/16 08:00 16:00 00:00 Intake Total 60 ml Output Total 1 ml Balance -1 ml 60 ml Physical Examination Awake alert oriented conversant and appropriate Her speech is clear Sensation intact to light touch in the lower extremities except for mild paresthesias right lateral foot. Strength is 5/5 throughout the right and left lower extremity. No lower extremity edema. Medical Decision Making Impression and Plan Impression: 1. Right L5-S1 herniated nucleus pulposus 2. Right S1 radiculopathy Recommendations: Findings were discussed with the patient as well as family members in the room today. Options of conservative treatment, interventional pain management, surgical intervention have all been fully discussed. Although her pain is a little improved today, she states that it has overall been quite severe for the past few months and not really responded very well to conservative treatment and pain management. She wishes to proceed with surgical intervention The procedure of right L5-S1 laminectomy and microdiscectomy has been fully discussed with the patient and family. Risks and possible complications fully discussed including the risk of anesthesia, nerve damage, spinal fluid leak, infection, hematoma formation recurrent disc herniation. All questions answered. She appears understand and wishes to resume surgery which is tendon was scheduled for 11/09/16 a.lelia, Tommy Sosa MD Nov 08, 2016 18:29
[2016-11-08 19:08] VITALS: BP 112/55; PULSE 76; RESP 18; TEMP 98.1; O2SAT 92
[2016-11-08] MEDS: ACETAMINOPHEN/HYDROcodone 325 MG/10 MG TAB PO PRN (21:29)
[2016-11-08 23:10] VITALS: BP 121/73; PULSE 78; RESP 18; TEMP 98.9; O2SAT 96
[2016-11-09] MEDS ORDERED: SODIUM CHLORID 0.9% 500 ML IV PRN (02:00)
[2016-11-09] MEDS ORDERED: INSULIN HUMAN REGULAR 1,000 UNITS/10 ML VIAL SQ PRN (02:00)
[2016-11-09] MEDS ORDERED: LACTATED RINGER'S 1000 ML IV PRN (02:00)
[2016-11-09] MEDS ORDERED: CHLORHEXIDINE GLUCONATE 2 % 1 PACK (2 CLOTHS) TOPICAL PRN (02:00)
[2016-11-09] MEDS ORDERED: METOPROLOL TARTRATE 25 MG TAB PO PRN (02:00)
[2016-11-09] MEDS ORDERED: POVIDONE IODINE 5% (ANTISEPSIS KIT) 4 APPLICATIONS EACH NARE PRN (02:00)
[2016-11-09 04:03] VITALS: BP 133/80; PULSE 79; RESP 18; TEMP 98; O2SAT 95
[2016-11-09] MEDS ORDERED: LIDOCAINE 1%/EPINEPHrine 1:100,000 SOLN 20 ML VIAL ONE (05:57)
[2016-11-09] MEDS ORDERED: BUPIVACAINE HCL PF 0.25% 30 ML VIAL ONE (05:57)
[2016-11-09] MEDS: GLIMEPIRIDE 4 MG TAB PO SCH ×2 (06:40→18:43)
[2016-11-09] MEDS: INSULIN ASPART SUPPLEMENTAL SCALE SQ SCH ×4 (06:40→20:56)
[2016-11-09] MEDS: INSULIN HUMAN NPH 1,000 UNITS/10 ML VIAL SQ SCH ×2 (06:40→18:45)
[2016-11-09] MEDS ORDERED: THROMBIN (TOPICAL) 5,000 UNIT VIAL ONE (07:06)
[2016-11-09] MEDS ORDERED: ceFAZolin INJ 1,000 MG VIAL ONE (07:52)
[2016-11-09] MEDS ORDERED: fentaNYL CITRATE 250 MCG/5 ML AMP ONE ×2 (07:54→10:28)
[2016-11-09] MEDS ORDERED: ACETAMINOPHEN 1000 MG/100 ML VIAL IV ONE (07:55)
[2016-11-09] MEDS ORDERED: LACTATED RINGER'S 1000 ML INJ 1,000 ML IV ONE (08:20)
[2016-11-09] MEDS ORDERED: ONDANSETRON HCL 4 MG/2 ML VIAL IV PUSH ONE (08:20)
[2016-11-09] MEDS ORDERED: NEOSTIGMINE 3 MG/3 ML SYR IV ONE (08:20)
[2016-11-09] MEDS ORDERED: PROPOFOL 200 MG/20 ML AMP IV ONE (08:20)
[2016-11-09] MEDS ORDERED: PHENYLEPH/NS 1000 MCG/10 ML SYR IV ONE (08:20)
[2016-11-09] MEDS ORDERED: GENTAMICIN SULFATE 80 MG/2 ML VIAL IRRIGATION ONE (08:32)
[2016-11-09] MEDS ORDERED: THROMBIN (TOPICAL) 5,000 UNIT VIAL TOPICAL ONE (08:32)
[2016-11-09] MEDS ORDERED: GELFOAM SIZE 100 TOPICAL ONE (08:32)
[2016-11-09] MEDS ORDERED: BUPIVACAINE LIPOSOME PF 1.3% 20 ML VIAL INFIL ONE (08:32)
[2016-11-09] MEDS: MULTIVITAMIN TAB PO SCH (09:00)
[2016-11-09] MEDS: SODIUM CHLORIDE 0.9% FLUSH 10 ML FLUSH IV FLUSH SCH ×2 (09:00→20:56)
[2016-11-09] MEDS: METHOCARBAMOL 500 MG TAB PO SCH ×3 (09:00→18:43)
[2016-11-09] MEDS: LISINOPRIL 5 MG TAB PO SCH (09:00)
[2016-11-09] MEDS: JARDIANCE 10 MG PO SCH (09:00)
[2016-11-09] MEDS: GABAPENTIN 300 MG CAP PO SCH ×3 (09:00→20:56)
[2016-11-09] MEDS: EZETIMIBE 10 MG TAB PO SCH (09:00)
[2016-11-09] MEDS: DOCUSATE SODIUM 50 MG/SENNA 8.6 MG TAB PO SCH ×2 (09:00→20:55)
[2016-11-09] MEDS: DULoxetine HCl DR 20 MG CAP PO SCH (09:00)
--- NOTE | 2016-11-09 10:11 | PD.OP ---
Operative Report Date of Surgery: Nov 09, 2016 Preoperative Diagnosis: (1) Herniated lumbar intervertebral disc (2) Lumbar radiculopathy 1. Right L5-S1 herniated nucleus pulposus 2. Right S1 radiculopathy Postoperative Diagnosis: (1) Herniated lumbar intervertebral disc (2) Lumbar radiculopathy 1. Right L5-S1 herniated nucleus pulposus 2. Right S1 radiculopathy Procedure: Right L5 laminotomy, L5-S1 discectomy, resection sequestered herniated nucleus pulposus. Anesthesia: Gen. Surgeon: Tommy Sosa Medical Radiation Dosimetrist(s): Larisa Bravo Operation and Findings: Findings: Complete right L5-S1 annular tear with large sequestered herniated nucleus pulposis central and medial to the exiting right S1 nerve root. Procedure in detail: The patient was brought into the operating room and general endotracheal anesthesia induced without difficulty. Knee-high sequential compression devices were placed. Lines were established by Anesthesia The patient was placed in prone position on the concentric Calvin table with the side bolsters and all extremities appropriately padded Appropriate timeout procedure was performed with all personal present and in agreement The lumbar region was shaved with clippers and sterilely prepped and draped. 1% Xylocaine with epinephrine was used for local infiltration over the incision site which was made just to the right of midline at the L5-S1 level. The incision was carried sharply down to the lumbodorsal fascia which was incised just adjacent to the spinous processes. Parson elevator was used for subperiosteal elevation of paraspinous musculature and fascia away from the lamina and spinous process The deep self-retaining retractor was placed. The appropriate level was verified with intraoperative C-arm. The microscope was moved into place and used for the remainder of the procedure including the closure. The TPS drill with the 5 mm bone bur followed by the 3 mm Kerrison rongeur was used to remove the inferior aspect of the right inferior L5 lamina along with a small amount of the medial facet sufficient to gain access to the lateral recess without significant nerve root or thecal sac retraction. The ligamentum flavum was elevated away from the thecal sac and resected with the Kerrison rongeur which was also used to further remove ligamentum along the lateral recess. The exiting right S1 nerve root was traced down to the medial aspect of the inferior pedicle and traced back to the exit from the thecal sac. The thecal sac and exiting nerve root were then retracted gently medially revealing the underlying disc and annulus. The patient was noted to have a prominent sequestered herniated nucleus pulposus protruding to a total tear in the central to right L5-S1 annulus, which was significantly impinging on the overlying exiting nerve root and thecal sac. The disc and annulus were incised with the 11 blade knife and discectomy performed with the pituitary biopsy forceps and the straight and angled curettes. Any loose pieces of disc material in the intervertebral disc space were carefully removed. The neural structures appeared well decompressed at the end of the procedure. Bleeding was carefully controlled with bone wax for the bone bleeding and bipolar forceps. There is no significant bleeding time of closure. No cerebrospinal fluid leakage was encountered. The closure was performed with 0 Vicryl interrupted for the deep and superficial fascia, with 3-0 Vicryl interrupted for the subcutaneous closure, and 4-0 Vicryl running for the subcuticular closure. The dressing of sterile Mastisol, Steri-Strips, and Primapore dressing was applied. The patient was taken to recovery room in stable condition. All counts were correct at the end of the case. No specimen was sent to pathology. Estimated blood loss was 10 cc . Tommy Sosa MD Nov 09, 2016 10:11
[2016-11-09] MEDS ORDERED: DO NOT ADM ANY ANTICOAGULANT DRUGS PRN (10:22)
[2016-11-09] MEDS ORDERED: MIDAZOLAM HCL 2 MG/2 ML VIAL ONE (10:27)
--- NOTE | 2016-11-09 11:17 | RADRPT ---
EXAM DATE/TIME: 11/09/2016 08:47 [facility] COMPARISON: No previous studies available for comparison. INDICATIONS : L5/S1 laminectomy and discectomy. MEDICAL HISTORY : None. SURGICAL HISTORY : None. ENCOUNTER: Initial ACUITY: 1 day PAIN SCORE: Non-responsive. LOCATION: Lumbar spine. FINDINGS: Intraoperative examination demonstrates a localizing probe pointing towards L5-S1. CONCLUSION: Intraoperative changes as above. Suzy Galo MD on November 09, 2016 at 11:16 Board Certified Radiologist. This report was verified electronically.
[2016-11-09 12:00] VITALS: BP 122/58; PULSE 73; RESP 17; TEMP 97.2; O2SAT 96
[2016-11-09] MEDS: HYDROmorphone HCL PF 1 MG/ML VIAL IV PRN (12:28)
[2016-11-09] MEDS ORDERED: oxyCODONE/ACETAMINOPHEN 7.5 MG/325 MG TAB PO PRN (13:00)
[2016-11-09] MEDS ORDERED: HYDROmorphone HCL PF 1 MG/ML VIAL IV PRN (15:00)
[2016-11-09 16:00] VITALS: BP 129/58; PULSE 86; RESP 17; TEMP 97.3; O2SAT 96
--- NOTE | 2016-11-09 18:14 | EKG ---
Date Performed: 11/08/2016 Time Performed: 14:21:59 PTAGE: 71 years EKG: Sinus rhythm NORMAL ECG NO PREVIOUS TRACING DOCTOR: Mike Montoya Interpretating Date/Time 11/09/2016 18:11:17
--- NOTE | 2016-11-09 18:35 | HHI.PR ---
Subjective Remarks Pain is controlled. Objective Vitals Vital Signs Date Time Temp Pulse Resp B/P Pulse Ox O2 Delivery O2 Flow Rate FiO2 11/09/16 16:00 97.3 86 17 129/58 96 11/09/16 12:00 97.2 73 17 122/58 96 11/09/16 11:00 68 16 138/63 98 Room Air 11/09/16 10:45 71 16 124/67 98 Room Air 11/09/16 10:30 75 16 138/65 100 Nasal Cannula 2 11/09/16 10:18 98.3 93 16 134/61 99 Nasal Cannula 3 11/09/16 04:03 98.0 79 18 133/80 95 11/08/16 23:10 98.9 78 18 121/73 96 11/08/16 19:08 98.1 76 18 112/55 92 11/08/16 11/08/16 11/09/16 14:59 22:59 06:59 Intake Total 750 ml 360 ml 0 ml Balance 750 ml 360 ml 0 ml Intake Oral 750 ml 360 ml 0 ml # Voids 7 3 2 # Bowel Movements 1 0 1 Result Diagram: 11/06/16 1706 11/06/16 1706 Imaging Last Impressions Lumbar Spine X-Ray 11/09/16 0000 Signed Impressions: Service Date/Time: Wednesday, November 09, 2016 08:47 - CONCLUSION: Intraoperative changes as above. Suzy Galo MD Chest X-Ray 11/08/16 0000 Signed Impressions: Service Date/Time: Tuesday, November 08, 2016 14:19 - CONCLUSION: No acute cardiopulmonary disease. Suzy Galo MD Lumbar Spine MRI 11/06/16 1658 Signed Impressions: Service Date/Time: October 18:59 - CONCLUSION: Degenerative changes are noted with a disc protrusion at L5-S1 as described above. Brandon Maurice MD Objective Remarks GENERAL: This is a well-nourished, well-developed patient, in no apparent distress. CARDIOVASCULAR: Regular rate and rhythm without murmurs, gallops, or rubs. RESPIRATORY: Clear to auscultation. Breath sounds equal bilaterally. No wheezes , rales, or rhonchi. GASTROINTESTINAL: Abdomen soft, non-tender, nondistended. Normal active bowel sounds MUSCULOSKELETAL: Extremities without clubbing, cyanosis, or edema. NEURO: Alert & Oriented x4 to person, place, time, situation. Moves all ext x4 A/P Problem List: (1) Herniated lumbar intervertebral disc Status: Acute Plan: - pt transferred from [facility] 11/08 - Right L5 laminotomy, L5-S1 discectomy, resection sequestered herniated nucleus pulposus performed by Dr. Sosa (11/09/16) - robaxin prn - diluadid/percocet prn - constipation precautions - PT - anticoagulation? - SCD - supportive care (2) Diabetes mellitus, type 2 Status: Chronic Plan: - stable - scheuled NPH - amaryl, Jardiance - SSI Problem Qualifiers (1) Diabetes mellitus, type 2: Qualified Code: E11.8 - Type 2 diabetes mellitus with complication, with long- term current use of insulin Stepan Escobar DO Nov 09, 2016 18:35
[2016-11-09] MEDS ORDERED: METF1000 PO (18:47)
[2016-11-09] MEDS: ACETAMINOPHEN/HYDROcodone 325 MG/10 MG TAB PO PRN (20:55)
[2016-11-09 21:03] VITALS: BP 119/63; PULSE 89; RESP 18; TEMP 97.6; O2SAT 96
[2016-11-09 23:40] VITALS: BP 130/65; PULSE 80; RESP 17; TEMP 98.4; O2SAT 98
[2016-11-10 03:24] VITALS: O2SAT 98
[2016-11-10 04:35] VITALS: BP 150/87; PULSE 90; RESP 16; TEMP 97.6; O2SAT 96
[2016-11-10] MEDS: INSULIN ASPART SUPPLEMENTAL SCALE SQ SCH ×2 (07:00→11:21)
[2016-11-10] MEDS: GLIMEPIRIDE 4 MG TAB PO SCH (07:11)
[2016-11-10] MEDS: INSULIN HUMAN NPH 1,000 UNITS/10 ML VIAL SQ SCH (07:14)
[2016-11-10 08:00] VITALS: BP 158/80; PULSE 90; RESP 20; TEMP 97.2; O2SAT 95
[2016-11-10] MEDS: LISINOPRIL 5 MG TAB PO SCH (08:25)
[2016-11-10] MEDS: MULTIVITAMIN TAB PO SCH (08:25)
[2016-11-10] MEDS: JARDIANCE 10 MG PO SCH (08:25)
[2016-11-10] MEDS: EZETIMIBE 10 MG TAB PO SCH (08:26)
[2016-11-10] MEDS: METHOCARBAMOL 500 MG TAB PO SCH (08:26)
[2016-11-10] MEDS: DOCUSATE SODIUM 50 MG/SENNA 8.6 MG TAB PO SCH (08:26)
[2016-11-10] MEDS: GABAPENTIN 300 MG CAP PO SCH (08:26)
[2016-11-10] MEDS: SODIUM CHLORIDE 0.9% FLUSH 10 ML FLUSH IV FLUSH SCH (08:27)
[2016-11-10] MEDS: DULoxetine HCl DR 20 MG CAP PO SCH (11:09)
[2016-11-10 12:00] VITALS: BP 121/59; PULSE 92; RESP 20; TEMP 97.6; O2SAT 94
--- NOTE | 2016-11-10 13:36 | HHI.PR ---
Subjective Remarks pt ambulating. pain controlled she and want to go home Objective Vitals heart reg lung cta abd s/nt ext no edema back..incision. c/d/i no redness or drainage. Vital Signs Date Time Temp Pulse Resp B/P Pulse Ox O2 Delivery O2 Flow Rate FiO2 11/10/16 12:00 97.6 92 20 121/59 94 11/10/16 08:00 97.2 90 20 158/80 95 11/10/16 07:35 Room Air 11/10/16 04:35 97.6 90 16 150/87 96 11/10/16 03:24 98 11/09/16 23:40 98.4 80 17 130/65 98 11/09/16 21:03 97.6 89 18 119/63 96 11/09/16 16:00 97.3 86 17 129/58 96 11/09/16 11/09/16 11/10/16 15:00 23:00 07:00 Intake Total 100 ml 240 ml Output Total 0 ml Balance 100 ml 240 ml Intake Oral 100 ml 240 ml Output Urine Total 0 ml # Voids 0 1 # Bowel Movements 0 0 Result Diagram: 11/06/16 1706 11/06/16 1706 Imaging Last Impressions Lumbar Spine X-Ray 11/09/16 0000 Signed Impressions: Service Date/Time: Wednesday, November 09, 2016 08:47 - CONCLUSION: Intraoperative changes as above. Suzy Galo MD Chest X-Ray 11/08/16 0000 Signed Impressions: Service Date/Time: Tuesday, November 08, 2016 14:19 - CONCLUSION: No acute cardiopulmonary disease. Suzy Galo MD Lumbar Spine MRI 11/06/16 1658 Signed Impressions: Service Date/Time: October 18:59 - CONCLUSION: Degenerative changes are noted with a disc protrusion at L5-S1 as described above. Brandon Maurice MD A/P Problem List: (1) Herniated lumbar intervertebral disc Status: Acute Plan: - pt transferred from [facility] 11/08 - Right L5 laminotomy, L5-S1 discectomy, resection sequestered herniated nucleus pulposus performed by Dr. Sosa (11/09/16) d/c home if ok with dr Sosa (2) Diabetes mellitus, type 2 Status: Chronic Plan: - stable - scheuled NPH - amaryl, Jardiance - SSI Problem Qualifiers (1) Diabetes mellitus, type 2: Qualified Code: E11.8 - Type 2 diabetes mellitus with complication, with long- term current use of insulin Ector Ferguson MD Nov 10, 2016 13:36
[2016-11-10] MEDS ORDERED: HYDR-3583 PO (13:39)
--- NOTE | 2016-11-10 13:39 | HHI.DCPOC ---
Discharge Care Plan Diagnosis: (1) Herniated lumbar intervertebral disc Goals to Promote Your Health * To prevent worsening of your condition and complications * To maintain your health at the optimal level Directions to Meet Your Goals Take your medications as prescribed Follow your dietary instruction Follow activity as directed Keep your appointments as scheduled Take your immunizations and boosters as scheduled If your symptoms worsen call your PCP, if no PCP go to Urgent Care Center or Emergency Room Smoking is Dangerous to Your Health. Avoid second hand smoke Call the 24-hour hour crisis hotline for domestic abuse at Ector Ferguson MD Nov 10, 2016 13:39
[2016-11-10] MEDS ORDERED: LORA-392 PO (14:09)
== END 2016-11-10 15:00 | disposition home or self-care (01) | DRG 520 ==
LOC: PHED 16:36 → PHEDA 20:05 → PH3A 21:03 → N06B 11-08 17:23 → OBSVTOIN 11-09 18:43
PROVIDERS: ADMIT Hospitalist; ATTEND Hospitalist
PROC: 0ST40ZZ Resection of Lumbosacral Disc, Open Approach (ICD-10-PCS; principal; 2016-11-09 07:55)
DX: M51.17 Intervertebral disc disorders with radiculopathy, lumbosacral region (principal); E11.40 Type 2 diabetes mellitus with diabetic neuropathy, unspecified; Z79.4 Long term (current) use of insulin; I10 Essential (primary) hypertension; E78.5 Hyperlipidemia, unspecified
CPT/HCPCS: 71010; 72020; 72148; 76000; 80053; 81001; 82948; 85025; 85610; 85730; 93005; C9290; G8987-GP; G8988-GP; J0131; J0690; J1170; J1580; J1815; J1885; J2060; J2250; J2370; J2405; J2710; J2930; J3010; J7120